=== PATIENT | female | born 1975 | race African-American/Black ===

== ENCOUNTER → 2016-12-07 | Outpatient (CLI) | payer MEDICARE, MEDICAID ==
[~2016-12-07] MED LIST: ALBU8.5H8 INH; BECL8.7A7 INH; BUTA-177 PO; CEPH-376 PO; CLOP75TA PO; CLOP75TA52 PO; ENAL20TA PO; FERR325T17 PO; FLUT1DIS IH; GABA600T2 PO; HYDR-3237 PO; HYDR10TA4 PO; LISI-170 PO; METO10TA2 PO; METO50TA82 PO; MONT10TA9 PO; NARA2.5T PO; NIMO30CA3 PO; NORT50CA PO; OMEP-110 PO; ONDA4TAB13 SL; PANT40TA3 PO; PANT40TA5 PO; QUET300T PO; SERT100T5 PO; TOPI25CA PO; TRAZ100T15 PO
[2016-12-07 12:44] LABS: ASPARTATE AMINO TRANSFERASE 10 U/L (15-37); BLOOD UREA NITROGEN 14 mg/dL (7-18)
== END | disposition home or self-care (01) ==
LOC: STAR 10:02
PROVIDERS: ATTEND Obstetrics & Gynecology Female Pelvic Medicine and Reconstructive Surgery
DX: Z01.818 Encounter for other preprocedural examination (principal); N94.6 Dysmenorrhea, unspecified; N92.6 Irregular menstruation, unspecified; N81.10 Cystocele, unspecified
CPT/HCPCS: 36415; 80053

== ENCOUNTER 2016-12-11 05:58 | Day surgery (SDC) | payer MEDICARE, MEDICAID ==
[2016-12-07 10:46] VITALS: BP 151/98
[~2016-12-11] VITALS: Ht 160 cm; Wt 86.0 kg
[2016-12-11] MEDS ORDERED: BUPIVACAINE/PF-EPI 0.25% 1:200K ONE (06:35)
[2016-12-11] MEDS ORDERED: NEOMY/POLYMYXIN B GU IRR. 1 ML IRRIG ONE (06:36)
[2016-12-11] MEDS ORDERED: LACTATED RINGERS 1,000 ML IV SCH (06:44)
[2016-12-11] MEDS ORDERED: MIDAZOLAM 1 MG/ML, 2ML ONE (06:47)
[2016-12-11] MEDS ORDERED: FENTANYL PF 100 MCG/2ML ONE ×2 (06:47)
[2016-12-11 06:48] VITALS: BP 151/98
[2016-12-11 06:52] LABS: HCG UR OBC PASS
[2016-12-11] MEDS ORDERED: LIDOCAINE 1%, 2ML SQ PRN (07:00)
[2016-12-11] MEDS ORDERED: CEFAZOLIN 1,000 MG ONE (07:27)
[2016-12-11] MEDS ORDERED: DEXAMETHASONE 4 MG/ML, 1ML ONE (07:27)
[2016-12-11] MEDS ORDERED: ROCURONIUM 10 MG/ML ONE (07:27)
[2016-12-11] MEDS ORDERED: PHENYLEPHRINE 10 MG/ML ONE (07:27)
[2016-12-11] MEDS ORDERED: PROPOFOL 10 MG/ML, 20ML ONE (07:27)
[2016-12-11] MEDS ORDERED: ONDANSETRON 2MG/ML, 2ML ONE (07:27)
[2016-12-11] MEDS ORDERED: ONDANSETRON 2MG/ML, 2ML IVPush PRN (07:30)
[2016-12-11] MEDS ORDERED: PROMETHAZINE 25 MG/ML, 1ML IV PRN (07:30)
[2016-12-11] MEDS ORDERED: ACETAMINOPHEN 325 MG TABLET PO PRN (07:30)
[2016-12-11] MEDS ORDERED: OXYcodone 5 MG/5 ML ORAL.SOL UDC PO PRN (07:30)
[2016-12-11] MEDS ORDERED: HYDROmorphone 1 MG/ML, 1ML IV PRN (07:30)
[2016-12-11] MEDS ORDERED: ALBUTEROL SULFATE 2.5 MG/3 ML NPPB PRN (07:30)
[2016-12-11] MEDS ORDERED: hydrALAzine 20 MG/ML, 1ML IV PRN (07:30)
[2016-12-11] MEDS ORDERED: MEPERIDINE/PF 25MG/0.5ML IVPush PRN (07:30)
[2016-12-11] MEDS ORDERED: LABETALOL 5MG/ML, 20ML IV PRN (07:30)
[2016-12-11] MEDS ORDERED: FENTANYL PF 100 MCG/2ML IV PRN (07:30)
[2016-12-11] MEDS ORDERED: ACETAMINOPHEN 650 MG/20.3 ML UDC ONE (09:30)
[2016-12-11] MEDS ORDERED: OXYcodone 5 MG/5 ML ORAL.SOL UDC ONE (09:30)
[2016-12-11] MEDS ORDERED: MEPERIDINE/PF 25MG/0.5ML ONE (09:48)
[2016-12-11] MEDS ORDERED: HYDROmorphone 2 MG/ML, 1ML ONE (10:41)
[2016-12-11] MEDS ORDERED: HYDROmorphone 2 MG/ML, 1ML IVPush PRN (11:00)
[2016-12-11] MEDS ORDERED: OXYcodone/APAP 5/325MG TABLET PO PRN (11:00)
[2016-12-11] MEDS: HYDROcodone/APAP 5/325 TABLET PO PRN ×2 (13:00→16:40)
[2016-12-11] MEDS ORDERED: IBUPROFEN 600 MG TABLET ONE (13:10)
[2016-12-11] MEDS ORDERED: IBUPROFEN 200 MG TABLET PO ONE (13:30)
== END 2016-12-11 16:50 ==
LOC: OUT 05:58
PROVIDERS: ATTEND Obstetrics & Gynecology Female Pelvic Medicine and Reconstructive Surgery
DX: N92.1 Excessive and frequent menstruation with irregular cycle (principal); N94.6 Dysmenorrhea, unspecified; N39.3 Stress incontinence (female) (male); N80.3 Endometriosis of pelvic peritoneum; I10 Essential (primary) hypertension; Z86.73 Personal history of transient ischemic attack (TIA), and cerebral infarction without residual deficits; K21.9 Gastro-esophageal reflux disease without esophagitis; F32.9 Major depressive disorder, single episode, unspecified; J45.909 Unspecified asthma, uncomplicated
CPT/HCPCS: 57265; 57288; 58552; 81025; 88307; C1771; J0690; J1100; J1170; J2175; J2250; J2370; J2405; J2704; J3010; J3490; J7120

== ENCOUNTER 2018-03-12 01:16 | Emergency (ER) | payer MEDICARE, MEDICAID ==
[~2018-03-12] VITALS: Ht 162.6 cm; Wt 89.8 kg
[~2018-03-12 01:16] MED LIST changes: -NORT50CA PO; +NORT50CA52 PO; +TRAZ-137 PO; -TRAZ100T15 PO
[2018-03-12] MEDS ORDERED: FAMOTIDINE 20 MG TABLET ONE (01:36)
[2018-03-12] MEDS ORDERED: FAMOTIDINE 20 MG TABLET PO ONE (02:00)
[2018-03-12 04:43] VITALS: BP 128/70
== END 2018-03-12 04:50 | disposition home or self-care (01) ==
LOC: ED 02:45
DX: T78.3XXA Angioneurotic edema, initial encounter (principal); I10 Essential (primary) hypertension; J45.909 Unspecified asthma, uncomplicated; F32.9 Major depressive disorder, single episode, unspecified; Z86.73 Personal history of transient ischemic attack (TIA), and cerebral infarction without residual deficits; Z90.49 Acquired absence of other specified parts of digestive tract
CPT/HCPCS: 99283; J7512

== ENCOUNTER 2018-08-13 14:10 | Outpatient (CLI) | payer MEDICARE, MEDICAID ==
[~2018-08-13 14:10] MED LIST changes: -GABA600T2 PO; +GABA600T7 PO; +SERT100T32 PO; -SERT100T5 PO
== END 2018-08-13 23:59 | disposition home or self-care (01) ==
LOC: CVU 14:10
PROVIDERS: ATTEND Nurse Practitioner Family
DX: Z02.9 Encounter for administrative examinations, unspecified (principal)

== ENCOUNTER 2019-01-29 09:46 | Outpatient (CLI) | payer MEDICARE, MEDICAID ==
[~2019-01-29 09:46] MED LIST changes: -TOPI25CA PO; +TOPI25CA3 PO
== END 2019-01-29 23:59 | disposition home or self-care (01) ==
LOC: CFH 09:46
PROVIDERS: ATTEND Nurse Practitioner Family
DX: G43.109 Migraine with aura, not intractable, without status migrainosus (principal); Z86.73 Personal history of transient ischemic attack (TIA), and cerebral infarction without residual deficits
CPT/HCPCS: 70551